=== PATIENT | female | born 1945 ===

== ENCOUNTER 2021-06-02 14:59 | Observation (INO) ==
[2021-06-02] MEDS ORDERED: Lactated Ringers 1000 ml BAG 1,000 ML IV ONE (15:41)
[2021-06-02 16:04] LABS: ABS Basophils 0.1 10^3/ul (0-0.2); ABS Eosinophils 0.1 10^3/ul (0-0.6); ABS Lymphocytes 2.3 10^3/ul (1.0-4.8); ABS Monocytes 0.8 10^3/ul (0-0.8); Eosinophil % 0.9 %; Hematocrit 40 % (35-47); Hemoglobin 13.5 g/dL (12.0-16.0); Lymphocyte % 27.9 %; Mean Corpuscular HGB Conc 34 g/dL (31-36); Mean Corpuscular Hemoglobin 30 pg (27-31); Mean Corpuscular Volume 90 fL (80-97); Mean Platelet Volume 8.2 fL (7.4-10.4); Nucleated Red Blood Cells % 0.1; Platelet Count 270 10^3/uL (150-450); Red Blood Count 4.45 10^6 /uL (3.70-4.87); Red Cell Distribution Width 14 % (10-15); White Blood Count 8.1 10^3/uL (3.5-10.8)
[2021-06-02 16:51] LABS: Albumin 4.2 g/dL (3.2-5.2); Albumin/Globulin Ratio 1.4 (1-3); Calcium 9.3 mg/dL (8.6-10.3); EGFR African American 72.5 (>60); EGFR Non-African American 59.9 (>60); Globulin 2.9 g/dL (2-4); Magnesium 1.7 mg/dL (1.9-2.7); Total Bilirubin 0.5 mg/dL (0.2-1.0); Total Protein 7.1 g/dL (6.4-8.9)
[2021-06-02] MEDS ORDERED: Magnesium Sulfate 2 gm BAG 2 GM/50 ML BAG IVPB ONE (19:54)
[2021-06-02] MEDS ORDERED: Heparin 5000 UNITS/ML 1 mL VIAL SUBCUT SCH (22:00)
[2021-06-02 22:21] LABS: TSH Ultra Thyroid Stim Horm 2.9 mcIU/mL (0.34-5.60)
[2021-06-02 22:22] LABS: Activated Partial Thrombo Time 31.2 seconds (26.0-38.0); INR 1.03 (0.86-1.15)
[2021-06-03 05:33] LABS: ABS Eosinophils 0.1 10^3/ul (0-0.6); ABS Lymphocytes 2.6 10^3/ul (1.0-4.8); ABS Monocytes 0.6 10^3/ul (0-0.8); ABS Neutrophils 2.9 10^3/ul (1.5-7.7); Eosinophil % 1.9 %; Hematocrit 39 % (35-47); Lymphocyte % 41.6 %; Mean Corpuscular HGB Conc 34 g/dL (31-36); Mean Corpuscular Hemoglobin 31 pg (27-31); Mean Corpuscular Volume 91 fL (80-97); Mean Platelet Volume 8.8 fL (7.4-10.4); Nucleated Red Blood Cells % 0.1; Platelet Count 183 10^3/uL (150-450); Red Blood Count 4.26 10^6 /uL (3.70-4.87); Red Cell Distribution Width 14 % (10-15); White Blood Count 6.2 10^3/uL (3.5-10.8)
[2021-06-03 05:48] LABS: Calcium 8.9 mg/dL (8.6-10.3); Magnesium 2.3 mg/dL (1.9-2.7); Potassium 3.9 mmol/L (3.5-5.0)
[2021-06-03 05:54] LABS: EGFR African American 92.1 (>60); EGFR Non-African American 76.1 (>60); HDL Cholesterol 33.2 mg/dL
[2021-06-03] MEDS ORDERED: Perflutren Lipid Microsphere 3 ML VIAL ONE (07:52)
[2021-06-03] MEDS: Heparin 5000 UNITS/ML 1 mL VIAL SUBCUT SCH ×2 (08:55→15:35)
[2021-06-03] MEDS ORDERED: Aspirin EC 81 mg TAB.EC (enteric coated) PO SCH (09:00)
[2021-06-03 15:47] VITALS: BP 133/59
== END 2021-06-03 16:50 | disposition home or self-care (01) ==
LOC: ED 14:59 → MEDTELE 14:59 → SUATTDRO 21:40 → MEDTELE 22:37
PROVIDERS: ADMIT Hospitalist; ATTEND Internal Medicine